=== PATIENT | male | born 1995 | race Caucasian/White ===

== ENCOUNTER 2024-01-28 21:51 | Emergency (ER) | payer BC ==
[2024-01-28] MEDS: Sodium Chloride 0.9% 1,000 ML IV SCH (22:09)
[2024-01-28] MEDS: diphenhydrAMINE 50 MG/ML SDV IVPUSH ONE (22:10)
[2024-01-28] MEDS: Famotidine 20 MG/2 ML SDV IVPUSH ONE (22:13)
[2024-01-28] MEDS: methylPREDNISolone Sodium Succinate 125 MG/2 ML SDV IVPUSH ONE (22:20)
[2024-01-28] MEDS: Albuterol 0.083% 2.5 MG/3 ML Neb Soln NEB ONE (22:33)
== END 2024-01-28 23:18 | disposition home or self-care (01) ==
LOC: JD.ED 21:51
DX: T78.40XA Allergy, unspecified, initial encounter (principal); Z91.018 Allergy to other foods; Z91.010 Allergy to peanuts
CPT/HCPCS: 94640; 96374; 96375; 99283; J1200; J2919; J3490; J7030; J7620-GY